=== PATIENT | female | born 2000 | race Caucasian/White ===

== ENCOUNTER 2024-11-21 14:13 | Emergency (ER) | payer SELFPAY ==
[~2024-11-21] VITALS: Ht 154.9 cm; Wt 133.3 kg
--- NOTE | 2024-11-21 14:59 | DVH ---
EXAM: XY CHEST PORTABLE HISTORY: ASTHMA COMPARISON: None TECHNIQUE: Portable upright AP view of the chest was performed. FINDINGS: No pneumothorax, consolidative infiltrates, or pulmonary edema. There is mild central peribronchial t hickening. The heart is not enlarged. IMPRESSION: Mild reactive airways disease. The lungs are otherwise clear.
[2024-11-21] MEDS: ALBUTEROL SULF 2.5 MG/0.5ML(0.5%) NEB SOLN NEB ONE (15:50)
[2024-11-21] MEDS: methylPREDNISolone SOD SUCC 125 MG/2 ML VL IM ONE (15:56)
--- NOTE | 2024-11-21 15:59 | ED.PDOC ---
SOB-HPI HPI Comments A 24 YEAR OLD FEMALE PRESENTS TO THE ED WITH COMPLAINT OF ASTHMA EXACERBATION. PATIENT STATES SHE HAS A HISTORY OF ASTHMA AND HAS NOT HAD HER MEDICATION FOR THE PAST 1 MONTH. PATIENT REPORTS SHE BEGAN TO EXPERIENCE WHEEZING, CHEST TIGHTNESS, AND A COUGH OVER THE LAST 2 DAYS, PROMPTING HER TO COME TO THE ED FOR EVALUATION. PATIENT DENIES FEVER, CHILLS, SHORTNESS OF BREATH, CHEST PAIN, ABDOMINAL PAIN, NAUSEA, VOMITING, HEADACHE, OR OTHER COMPLAINTS. NO OTHER SYMPTOMS OR MODIFYING FACTORS AT THIS TIME. PATIENT IS ALERT, ORIENTED X 4, AND HAS STEADY GAIT. Chief Complaint: Asthma Time Seen by MD: 14:22 Reviewed notes: Nurses Notes, Medications, Allergies Information Source: Patient Mode of Arrival: Ambulatory Severity: Moderate Timing: Days Duration: Since onset, Intermittent, Days Context: Spontaneous Onset PE Risk Factors: None History of: Asthma Prehospital treatment: None Modifying Factors: Nothing Associated Signs and Symptoms: Wheeze, Cough If cough with SOB: Productive Past Medical History PAST MEDICAL HISTORY: Asthma Surgical History: Denies all surgeries [employer] History: No Pertinent [employer]ERSON History Family History Family History: Reviewed,noncontributory to illness Social History Smoker: Non-Smoker Alcohol: Denies ETOH Use Drugs: Denies Drug Use Lives In: Home Constitutional: denies: chills, diaphoresis, fatigue, fever, malaise, sweats, weakness, others EENTM: denies: blurred vision, double vision, ear bleeding, ear discharge, ear drainage, ear pain, ear ringing, eye pain, eye redness, hearing loss, mouth pain, mouth swelling, nasal discharge, nose bleeding, nose pain, photophobia, tearing, throat pain, throat swelling, voice changes, others Respiratory: reports: cough, shortness of breath, wheezing, others (CHEST TIGHTNESS); denies: hemoptysis, orthopnea, SOB at rest, SOB with excertion, stridor Cardiovascular: denies: chest pain, dizzy spells, diaphoresis, Dyspnea on exertion, edema, irregular heart beat, left arm pain, lightheadedness, palpitations, PND, syncope, others Gastrointestinal: denies: abdomen distended, abdominal pain, blood streaked bowels, constipated, diarrhea, dysphagia, difficulty swallowing, hematemesis, melena, nausea, poor appetite, poor fluid intake, rectal bleeding, rectal pain, vomiting, others Genitourinary: denies: abnormal vagina bleeding, burning, dyspareunia, dysuria, flank pain, frequency, hematuria, incontinence, pain, , vagina discharge, urgency, others Neurological: denies: dizziness, fainting, headache, left sided numbness, left sided weakness, numbness, paresthesia, pre-existing deficit, right sided numbness, right sided weakness, seizure, speech problems, tingling, tremors, weakness, others Musculoskeletal: denies: back pain, gout, joint pain, joint swelling, muscle pain, muscle stiffness, neck pain, others Integumetry: denies: bruises, change in color, change in hair/nails, dryness, laceration, lesions, lumps, rash, wounds, others Allergic/Immunocompromised: denies: Difficulty Healing, Frequent Infections, Hives, Itching, others Hematologic/Lymphatic: denies: anemia, blood clots, easy bleeding, easy bruising, swollen glands, others Endocrine: denies: excessive hunger, excessive sweating, excessive thirst, excessive urination, flushing, intolerance to cold, intolerance to heat, unexplained weight gain, unexplained weight loss, others Psychiatric: denies: anxiety, bipolar disorder, depression, hopeless, panic disorder, schizophrenia, sleepless, suicidal, others All Other Systems: Reviewed and Negative Physical Exam General Appearance: No Apparent Distress, Obese HEENT: Normal ENT Inspection, PERRL/EOMI, Pharynx Normal, TMs Normal Neck: Full Range of Motion, Non-Tender, Normal, Normal Inspection Respiratory: Chest Non-Tender, Decreased Breath Sounds, No Accessory Muscle Use, No Respiratory Distress, Wheezing Cardiovascular: No Edema, No JVD, No Murmur, No Gallop, Normal Peripheral Pulses, Regular Rate/Rhythm Breast Exam: Deferred Gastrointestinal: No Organomegaly, Non Tender, No Pulsatile Mass, Normal Bowel Sounds, Soft Genitalia: Deferred Pelvic: Deferred Rectal: Deferred Extremities: No calf tenderness, Normal capillary refill, Normal inspection, Normal range of motion, Non-tender, No pedal edema Musculoskeletal : Apperance: Normal Neurologic: Alert, rack maker II-XII nml as Tested, No Motor Deficits, Normal Affect, Normal Mood, No Sensory Deficits Cerebellar Function: Normal Reflexes: Normal Skin: Dry, Normal Color, Warm Peripheral Pulses: 2+ carotid (R), 2+ carotid (L) Lymphatic: No Adenopathy Was a procedure done? Was a procedure done?: No Differential Dx Differential Diagnosis: Asthma, Bronchitis, Pneumonia, Sinusitis, Allergic Rhinitis, Otitis Media, Pharyngitis, URI X-Ray, Labs, Meds, VS Vital Signs Date Time Temp Pulse Resp B/P (MAP) Pulse Ox O2 Delivery O2 Flow Rate FiO2 11/21/24 15:54 18 94 Room Air* 0 21 11/21/24 14:14 97.6 81 18 133/80 97 97.6 Current Medications Medications (Trade) Dose Ordered Sig/Michael Route Start Time Stop Time Status Last Admin Albuterol (Ventolin Medneb) 2.5 mg ONCE ONCE NEB 11/21/24 15:45 11/21/24 15:46 DC 11/21/24 15:50 Methylprednisolone Sodium Succinate (Solu Medrol) 125 mg ONCE ONCE IM 11/21/24 15:45 11/21/24 15:46 DC 11/21/24 15:56 EXAM: XY CHEST PORTABLE HISTORY: ASTHMA COMPARISON: None TECHNIQUE: Portable upright AP view of the chest was performed. FINDINGS: No pneumothorax, consolidative infiltrates, or pulmonary edema. There is mild central peribronchial thickening. The heart is not enlarged. IMPRESSION: Mild reactive airways disease. The lungs are otherwise clear. ATED BY: CHANEL WESTON MD DICTATED DATE/TIME: 11/21/241456 SIGNED BY: CHANEL WESTON MD SIGNED DATE/TIME: 11/21/241456 CC: X-Ray, Labs, Meds, VS Comment EXTERNAL MEDICAL RECORDS REVIEWED: [NONE] INDEPENDENT HISTORIANS: [NONE] SOCIAL DETERMINANTS OF HEALTH: [NONE] LABS ORDERED: NONE REVIEWED AND INTERPRETED RESULTS: NONE IMAGING ORDERED: XR CHEST TREATMENTS ORDERED: DUONEB 3MG INHL, SOLU-MEDROL 125MG IM PROCEDURES PERFORMED: NONE CRITICAL CARE TIME: NONE I HAVE DISCUSSED THE PATIENT WITH THE ATTENDING PHYSICIAN DR. TELLEZ AND HE AGREES WITH THE PATIENT'S PLAN OF CARE AND DISPOSITION. BASED ON HISTORY OF PRESENT ILLNESS, AND PHYSICAL EXAM, PATIENT WILL BE DISCHARGED HOME. DISCUSSED PLAN FOR DISCHARGE HOME WITH RX [ALBUTEROL INHALER AND PREDNISONE]. MEDICATION WARNINGS GIVEN. SHARED DECISION MAKING: PATIENT INSTRUCTED TO FOLLOW UP WITH PRIMARY CARE PROVI NATASHA IN 1-2 DAYS FOR RE-EVALUATION OF SYMPTOMS. PATIENT VERBALIZES UNDERSTANDING TO RETURN TO ED FOR NEW OR WORSENING SYMPTOMS OR IF FOLLOW UP WITH PCP CANNOT BE OBTAINED. PATIENT FEELS COMFORTABLE GOING HOME AT THIS TIME. ALL QUESTIONS ADDRESSED AT TIME OF DISCHARGE. Images Reviewed?: Images reviewed and evaluated by me Time of 1ST Reevaluation: 16:14 Reevaluation 1ST: Improved Patient Education/Counseling: Diagnosis, Treatment, Need For Follow Up Family Education/Counseling: Diagnosis, Treatment, Need For Follow Up Medical Screening: No EMC Exist At This Time SEPSIS Sepsis Screen Date sepsis recognized/suspect: Nov 21, 2024 Time Sepsis recognized/suspect: 1413 Recent Procedure: No On Antibiotic Therapy: No Respiratory Rate >20: No Heart Rate >90: No Temp<36 C (96.8 F) or >38.3 C: No SBP <90 or MAP <65 mmHG: No New Acute Mental Status Change: No Is the patient on CPAP, BIPAP,: No Physician Orders Chest Portable (11/21/24 14:23) Vital Signs Date Time Temp Pulse Resp B/P (MAP) Pulse Ox O2 Delivery O2 Flow Rate FiO2 11/21/24 15:54 18 94 Room Air* 0 21 11/21/24 14:14 97.6 81 18 133/80 97 97.6 Medications Medications Dose Ordered Sig/Michael Route Start Time Stop Time Status Last Admin Dose Admin Albuterol 2.5 mg ONCE ONCE NEB 11/21/24 15:45 11/21/24 15:46 DC 11/21/24 15:50 Methylprednisolone Sodium Succinate 125 mg ONCE ONCE IM 11/21/24 15:45 11/21/24 15:46 DC 11/21/24 15:56 Departure 1 Departure Time of Disposition: 16:14 Impression: Primary Impression: Acute asthma exacerbation Qualified Codes: J45.21 - Mild intermittent asthma with (acute) exacerbation Disposition: 01 HOME / SELF CARE / HOMELESS Condition: Stable Additional Instructions: FOLLOW-UP WITH PCP IN 1 TO 2 DAYS. TAKE MEDICATIONS PRESCRIBED. RETURN TO ED FOR ANY NEW OR WORSENING SYMPTOMS. e-Prescriptions Prednisone (Prednisone) 20 Mg Tab 60 MG PO DAILY, #15 TAB Prov: AMITA FUNK 11/21/24 Albuterol Sulfate (Ventolin) 2.5 Mg/0.5 Ml Nb 1 VIAL NEB Q6HR, #120 VIAL Prov: AMITA FUNK 11/21/24 Albuterol Sulfate (Albuterol Sulfate Hfa) 108 Mcg/Act Aer 108 MCG IN TID, #120 AER Prov: AMITA FUNK 11/21/24 Discharged With: Self Critical Care Note Critical Care Time?: No Stability Stability form required: No Heart Score Heart Score: Heart Score Response (Comments) Value History N/A 0 EKG N/A 0 Age N/A 0 Risk Factors N/A 0 Troponin N/A 0 Total 0 I personally scribed for AMITA FUNK ([email or web address]) on 11/21/24 at 15:59. E lectronically submitted by Bhavesh Gómez ([email or web address]). AMITA FUNK Nov 21, 2024 15:59
[2024-11-21] MEDS ORDERED: ALB5IS NEB (16:17)
[2024-11-21] MEDS ORDERED: ALBU108A5 IN (16:17)
[2024-11-21] MEDS ORDERED: PRED20TA2 PO (16:17)
[2024-11-21 16:21] VITALS: BP 130/86; PULSE 86; RESP 20; TEMP 97; O2SAT 99
== END 2024-11-21 16:25 | disposition home or self-care (01) ==
LOC: ER 14:13
DX: J45.901 Unspecified asthma with (acute) exacerbation (principal)
CPT/HCPCS: 71045; 94640; 96372; 99283; J2919